=== PATIENT | male | born 1950 | race Caucasian/White ===

== ENCOUNTER → 2021-03-29 11:06 | Outpatient (CLI) | payer MEDICARE, OTHER, SELFPAY ==
[2021-03-29 12:36] LABS: COVID19 -Nasal RAPID Negative (Negative)
== END ==
PROVIDERS: Visit Provider Physician Assistant
DX: Z01.812 Encounter for preprocedural laboratory examination (principal); Z20.822 Contact with and (suspected) exposure to COVID-19
CPT/HCPCS: 87635; C9803

== ENCOUNTER 2021-04-01 10:26 | Observation (INO) | payer MEDICARE, OTHER, SELFPAY ==
[2021-03-24 12:43] VITALS: BMI 33.2
[2021-03-31] VITALS (14 sets, daily range): BP systolic 103–132; BP diastolic 48–70; PULSE 55–101; RESP 14–21; TEMP 35.8–36.9; O2SAT 92–100; BMI 33.2
--- NOTE | 2021-03-31 06:30 | DI.RAD.S_ITS ---
PROCEDURE: XR KNEE RT 1TO2V INDICATIONS: post op total knee TECHNIQUE: 2 view(s) of the knee acquired. COMPARISON: [facility] NobleLucien Ingram, CR, XR KNEE 4+ VIEWS RIGHT, 01/22/2021, 15:57. FINDINGS: Bones: Patient is status post knee joint arthroplasty. Hardware components are in expected positions. Visualized bony structures are intact. Soft tissues: Overlying postoperative changes are noted. IMPRESSION: Status post interval right total knee arthroplasty without evidence for acute hardware complication. Dictated by: Cyrus Pelaez M.D. on 03/31/2021 at 15:06 Approved by: Cyrus Pelaez M.D. on 03/31/2021 at 15:07
[2021-03-31] MEDS: CELECOXIB 200 MG CAPSULE PO (09:04)
[2021-03-31] MEDS: PREGABALIN 75 MG CAPSULE PO (09:04)
[2021-03-31] MEDS: ACETAMINOPHEN 325 MG TABLET 975 MG PO (09:04)
[2021-03-31] MEDS: LACTATED RINGERS 1,000 ML 42 ML IV (09:05)
--- NOTE | 2021-03-31 09:23 | PM.PREOP ---
Pre-operative Note COVID-19 COVID-19 status: Negative Result date/Date tested (Pos, Neg/Pending): 03/29/21 Interval Note History & Physical reviewed/Exam performed by Physician: Yes Changes to H&P: No
--- NOTE | 2021-03-31 09:30 | P.OP_ITS ---
Operative Date/Time/Diagnoses Date of procedure: 03/31/21 Time of procedure: 11:40 Pre-op diagnosis: Right knee osteoarthritis Post-op diagnosis: same Procedure & Clinicians Procedure: Right total knee replacement Same procedure as scheduled: Yes Indications: The patient has had progressively worsening right knee pain with radiographic changes consistent with arthritis. Non-operative management has failed and the patient has requested total knee replacement. The risks, benefits and alternatives to surgery were discussed with the patient prior to proceeding. Risks discussed included, but were not limited to, failure to relieve pain, stiffness, infection, nerve damage, deep venous thrombosis, pulmonary embolism, stroke, coma, heart attack, permanent paralysis and , as well as the potential need for eventual revision of the prosthetic. Surgeon: Rohit Wright Welt Edge Rounder: Gage Lebron Click Yes if Unassisted: No Anesthesia Type: General, Spinal and Local Operative Notes Findings: Severe medial and patellofemoral osteoarthritis with relative preservation of the lateral compartment. Closure Type: primary Specimen(s): none sent Prosthetic devices, grafts, tissues, transplants, or devices: Implants used in this procedure were manufactured by the [employer] and included the BCS II Journey total knee replacement with a size 8 right Oxinium femoral component, a size 6 right non porous tibial base plate, a none a 9 mm cross-linked polyethylene tibial insert and a 35 mm oval Nicole II patella. Applied: implant(s) Estimated Blood Loss (mL): 25 Blood products transfused: none Tourniquet time (min): 57 Procedure in detail: The patient was seen in the pre-operative area, where the patient identified the right knee as the operative site and this was marked with my initials. The patient received pre-operative antibiotics, and was taken to the operating room and placed on the operative table in the supine position. After satisfactory anesthesia, a java consultant out was performed. The right leg was encircled with a tourniquet about the proximal thigh, and the leg was prepared from the toes to the tourniquet with ChloroPrep in the usual fashion and draped through sterile drapes. The leg was elevated and exsanguinated with Eschmark bandage and the tourniquet inflated to 250 mmHg pressure. The knee was approached through an approximately 18 cm incision centered over the patella and carried into the knee through a medial parapatellar arthrotomy. There was a large meniscal cyst attached to the anterior horn of the medial meniscus which was excised during the approach. The capsule was preserved during this excision to allow closure. The anterior osteophytes and soft tissues were removed. The rotational landmarks of Roosevelt's line and the transepicondylar axis were marked on the femur with electrocautery, and intramedullary guide holes for the femur and tibia were created. The distal femoral cut was made in 6 degrees of valgus using the intramedullary guide at the primary cut setting. The proximal tibial cut was then made using the intramedullary guide, taking 9 mm of bone off the less involved side. The extension gap was checked and the rotation of the femoral component confirmed with the gap balancing system. The anterior, posterior and chamfer cuts were then made. The posterior osteophytes and soft tissues were then removed. The posterior capsule was injected with part of a mixture of 60 ml 0.25% Marcaine mixed with 20 ml Exparel and 4 mg of morphine for post-operative pain control. The remainder of this mixture was injected into the capsule and subcutaneous tissues during cement curing. The tibia was prepared with the rotation set by an extra medullary guide. Trial tibial and femoral components were then placed and the intercondylar notch cut through the femoral trial. Range of motion was 0-135 degrees, with good stability throughout the range. The patella was then cut to accommodate the patellar prosthetic. There was no need for a lateral release. The trials were then removed, and the femoral hole plugged with a bone plug. The bone was prepared with pulsatile lavage, and dried with a sponge. Cement was applied and the final prosthetics placed. Excess cement was removed during and after cement curing. After confirming there was no extruded cement posteriorly, the final tibial insert was placed. The knee was copiously irrigated and the tourniquet deflated. Hemostasis was obtained. The capsule was closed with interrupted # 2 polyester suture. The subcutaneous layer was closed with 3-0 Vicryl, and the skin with a running 3-0 V-Lock suture and Dermabond. An Aquacel Ag dressing was applied and the patient was taken to recovery having tolerated the procedure well. Post-operative Condition: stable Disposition: PACU Plan for aftercare: The patient will be maintained on a standard total knee replacement protocol with weight bearing as tolerated. The patient will receive aspirin and sequential compression devices for DVT prophylaxis. The patient will be discharged home when safe for the home environment.
[2021-03-31] MEDS: CEFAZOLIN 1 GM VIAL 2 GM IV (10:06)
[2021-03-31] MEDS: TRANEXAMIC ACID 1,000 MG VIAL 1000 MG INJ ×2 (10:20→11:08)
[2021-03-31] MEDS: BUPIVACAINE LIPOSOME 266 MG/20 ML VIAL INJ (10:27)
[2021-03-31] MEDS: BUPIVACAINE 0.25% W/ EPI 30 ML VIAL 60 ML INJ (10:27)
[2021-03-31] MEDS: MORPHINE 4 MG/ML INJ INJ (10:27)
--- NOTE | 2021-03-31 10:30 | SUR.OPER ---
Supine on padded OR bed. Pillow under head, arms secured on padded armboards <90 degree abduction. Safety belt across torso. Non-operative leg secured with tape over blanket over lower leg. Operative leg secured in DeMayo/Abraham/Nathe positioner. Foam padded brace at thigh of operative leg.
[2021-03-31] MEDS: LACTATED RINGERS 1,000 ML 100 ML IV ×2 (12:47→22:07)
--- NOTE | 2021-03-31 14:13 | SUR.PHASEI ---
Stable PACU stay, report called to sandi Javed transferred up to room and left in stable condition, bed down, locked and SCD's on.
[2021-03-31] MEDS: IBUPROFEN 400 MG TABLET PO ×3 (14:55→20:37)
[2021-03-31] MEDS: ACETAMINOPHEN 325 MG TABLET 650 MG PO ×2 (14:55→20:37)
--- NOTE | 2021-03-31 15:13 | PC.NURSE ---
RA = 98%, Aquacell/Eleuterio wrap c/d/i, PPP to RLE, IV fluids infusing, SCDs active, bed alarm active, pt oriented to room and call light
--- NOTE | 2021-03-31 16:10 | PT.IIE ---
Current Diagnoses Unilateral primary osteoarthritis, right knee (03/31/21) Surgery Performed Operation Date: 03/31/21 10:15 Actual Procedures p Total Knee Arthroplasty(Right) - Rohit Wright MD Medical History (Last Updated 03/24/21 @ 13:14 by Kym Frank RN) BPH with urinary obstruction CAD (coronary artery disease) Chronic cough CKD (chronic kidney disease), stage II Current every day smoker Depression Diabetes mellitus, type II Emphysema lung HLD (hyperlipidemia) HTN (hypertension) ILD (interstitial lung disease) Insomnia Microalbuminuria NSTEMI (non-ST elevated myocardial infarction) (2013) MAGAN (obstructive sleep apnea) (2007) Osteoarthritis RBBB (right bundle branch block) Physical Therapy Inpatient Evaluation/Re-Eval M1 PT/OT-IP Prior Functional Status Start: 03/31/21 17:29 Freq: NEEDED Status: Active Protocol: Document 03/31/21 16:10 DLM (Rec: 03/31/21 17:45 DLM [id number]) Medical Review Prior Functional Status Medical History Reviewed Yes Diet/Fluid Consistency Regular Communication WNL Mobility and Gait Independent without a device, community distances Activities of Daily Living and IADL's Independent Social History Household Members spouse Living Arrangements House Number of Floors (Floors) Two Floors Number of Stairs To Enter/Railing? he stays on main level of house, 2 steps to enter with rail Home Environment High Toilet,Walk in Shower Home Equipment Front Wheel Walker,Straight Cane,Shower Seat with Backrest ,Grab Bars Near Toilet,Grab Bars In Shower Additional Social History Comment His retired, CPAP at home with sleeping M2 PT-IP Current Condition Start: 03/31/21 17:29 Freq: NEEDED Status: Active Protocol: Document 03/31/21 16:10 DLM (Rec: 03/31/21 17:45 DLM [id number]) Physical Therapy Current Condition Current Condition Evaluation Date 03/31/21 Treatment Diagnosis Right TKA, impaired gait and mobility Onset Date 03/31/21 Weight Bearing Status Weight Bearing Status Weight Bear as Tolerated M3 PT-IP Subjective Start: 03/31/21 17:29 Freq: NEEDED Status: Active Protocol: Document 03/31/21 16:10 DLM (Rec: 03/31/21 17:45 DLM [id number]) Subjective Physical Therapy Visit Type Type Initial Evaluation Visit Start Time 15:45 Visit Stop Time 16:10 Total Visit Minutes [address] Visits 0 Physical Therapy Visit Comments Patient Comments He is nauseated today, he has out-pt PT set up after discharge Patient Goals discharge home with his to help him Therapy Pain Assessment Pain When Pain Assessed During Mobility Pain Present Pain Present Pain Reported Location Right Knee Intensity 3 Scale Used Numeric (0 - 10) Description Aching Pain Management Techniques Apply Cold,Elevation M4 PT-IP Mobility and Gait Start: 03/31/21 17:29 Freq: NEEDED Status: Active Protocol: Document 03/31/21 16:10 DLM (Rec: 03/31/21 17:45 DL [id number]) PT-Bed Mobility Assessment Supine to Sit Supine to Sit Standby Assistance Sit to Supine Sit to Supine Standby Assistance Scooting Scooting to Edge of Bed Independent Scooting Up and Down in Bed Independent PT-Transfer Assessment Comments Mobility Comments Vital signs: Sitting BP 140/84 , Supine 134/74 and HR 71, O2 sat 93% on room air. He sat up on edge of bed but has c/o nausea and light- headed. He was not able to progress to standing nor transfers this visit. He returned to bed to rest. Gait Assessment Comments Gait Comments unable to progress to gait this visit PT-Balance Assessment Sitting Balance and Reactions Static Sitting Balance Ability Normal Dynamic Sitting Balance Ability Normal M5 PT-IP Objective Assessments Start: 03/31/21 17:29 Freq: NEEDED Status: Active Protocol: Document 03/31/21 16:10 DLM (Rec: 03/31/21 17:45 DL [id number]) Orientation Orientation/Cognition Level of Alertness Alert Orientation Name,Age,Birthday,Month,Date, Year,Day of Week,Place, Situation Language Function Ability No Deficits Noted Safety Awareness Understands Safety Issues Memory Description No Deficits Noted Gross Range of Motion Upper Extremity ROM Assessment Within Functional Limits Lower Extremity ROM Assessment Right Impaired Impairments knee AROM 10-90 degrees Strength Upper Extremity Strength Assessment Within Functional Limits Lower Extremity Strength Assessment Right Impaired Hip able to lift off bed with extensor lag Knee knee ext 2+/5 Ankle DF 4+/5 Comments Strength Comments post-op pain and weakness present that affects functional strength Coordination Assessment Gross Coordination Gross Coordination WNL Sensation Assessment Sensation Gross Sensation WNL Muscle Tone Muscle Tone WNL Yes Other Assessments Other Other Assessments brandon wrap in place on right knee M6 PT-IP Treatment Start: 03/31/21 17:29 Freq: NEEDED Status: Active Protocol: Document 03/31/21 16:10 DLM (Rec: 03/31/21 17:45 DLM [id number]) Physical Therapy Treatment Exercises Exercises Ankle Pumps,Quad Sets,Seated Knee Flexion/Extension Education Education Provided Weight Bearing Status,Post-Op Packet,Safety Other Treatments Other Treatment Performed no family present this visit M7 PT-IP Assessment and Plan Start: 03/31/21 17:29 Freq: NEEDED Status: Active Protocol: Document 03/31/21 16:10 DLM (Rec: 03/31/21 17:45 DLM [id number]) PT Summary Assessment and Plan Potential Rehabilitation Potential Good Status of Condition at Evaluation Evolving Summary Impairments Pain,ROM,Strength,Balance,Bed Mobility,Transfers,Gait, Activity Tolerance Assessment Summary Chris is alert and resting in bed. He agreed to participate in physical therapy today. He is having nausea in bed and in sitting. He developed light- headedness with no significant drop in his BP. He declined to attempt standing due to his nausea. He returned to bed to rest. Will continue to work towards his goal of discharge home with his as he improves medically. Goals Bed Mobility Goal Independent Transfer Goal Independent,Front Wheeled Walker Gait Goal Standby Assistance,Front Wheel Walker Gait Distance 150 feet Other Goals up and down 2 steps with rail and cane with CG assist Days to Meet Goals 2 Frequency of Treatment Frequency Of Treatment Twice a Day Treatment Plan Physical Therapy Treatment Plan Bed Mobility Training,Transfer Training,Gait Training, Therapeutic Exercise,Balance Retraining,Post Op Education, Discharge Planning,Hot or Cold Pack Recommendations To Nursing Amount of Assist Needed 1 Person Assist Discharge Recommendations PT Discharge Recommendations Home with Assistance, Outpatient PT Transportation Needs at Discharge Private Vehicle
[2021-03-31] MEDS: AMLODIPINE 5 MG TABLET 2.5 MG PO (16:49)
[2021-03-31] MEDS: VALSARTAN 80 MG TABLET PO (16:49)
[2021-03-31] MEDS: TAMSULOSIN 0.4 MG CAPSULE PO (20:38)
[2021-03-31] MEDS: ASPIRIN EC 81 MG TABLET PO (20:38)
[2021-03-31] MEDS: ATORVASTATIN 20 MG TABLET 80 MG PO (20:38)
[2021-03-31] MEDS: DOCUSATE 100 MG CAPSULE PO (20:38)
[2021-03-31] MEDS: METFORMIN XR 500 MG TABLET 750 MG PO (20:38)
--- NOTE | 2021-03-31 22:10 | PC.NURSE ---
Per patient, last void was 0815 this morning prior to surgery. Patient was unable to urinate at 1615 and bladder scan showed over 400mL. Straight cath indicated and got 460mL out. Patient has not urinated since and has no urge to urinate. Bladder scan showed 560mL. Discussed with on-call Dr. Sommer and asked if straight cath or fisher is needed and he recommends another straight cath.
[2021-04-01] MEDS: IBUPROFEN 400 MG TABLET PO ×4 (00:21→13:05)
[2021-04-01 03:19] VITALS: BP 116/63; PULSE 72; RESP 18; TEMP 36.2; O2SAT 97
[2021-04-01 06:40] LABS: Hematocrit 36.5 % (41-53); Hemoglobin 11.8 g/dL (13.5-17.5)
[2021-04-01 07:42] VITALS: BP 104/57; PULSE 81; RESP 16; TEMP 36.1; O2SAT 95
--- NOTE | 2021-04-01 07:49 | PM.PNPO.1 ---
Subjective Subjective Date Patient Seen: 04/01/21 Time Patient Seen: 07:50 Interval history: Patient's pain is [id number]. Denies fever or chills. No nausea or vomiting. Patient has had difficulty urinating on his own. Patient has required straight catheterization x1. Patient has long history of being on Flomax. Exam Vital Signs (past 8 hours): - 04/01/21 03:19 Temperature 97.2 F L Pulse Rate 72 Respiratory Rate 18 Blood Pressure 116/63 Pulse Oximetry 97 Oxygen Delivery Method CPAP Oxygen Flow Rate 0 Narrative Exam Narrative: 70-year-old male resting comfortably in bed in no apparent distress. Dressing is Clean, dry, intact.. Motor functions intact distally. Sensation intact distally. Objective Labs Result Diagrams: 04/01/21 06:34 Labs: Laboratory Results - last 24 hr 04/01/21 06:34 Hgb 11.8 L Hct 36.5 L PFSH Medical History (Updated 03/24/21 @ 13:14 by Kym Frank RN) BPH with urinary obstruction CAD (coronary artery disease) Chronic cough CKD (chronic kidney disease), stage II Current every day smoker Depression Diabetes mellitus, type II Emphysema lung HLD (hyperlipidemia) HTN (hypertension) ILD (interstitial lung disease) Insomnia Microalbuminuria NSTEMI (non-ST elevated myocardial infarction) (2013) MAGAN (obstructive sleep apnea) (2007) Osteoarthritis RBBB (right bundle branch block) Surgical History (Updated 03/24/21 @ 13:11 by Kym Frank RN) History of bilateral carpal tunnel release History of vasectomy Hx of heart artery stent (2011) Hx of knee surgery Hx of knee surgery Social History household members: spouse Smoking Status: Current every day smoker alcohol intake: never Assessment & Plan Post-op Postoperative Procedures: Procedures Operation Date: 03/31/21 10:15 Actual Procedure Side Surgeon p Total Knee Arthroplasty Right Rohit Wright MD Postoperative day: 1 Postoperative status: doing well Postoperative status narrative: Urinary retention. Straight cath per protocol Postoperative plan: routine post-op care Postoperative plan narrative: Mobilize with physical therapy. Possible discharge home today if able to urinate on his own. Time Spent With Patient Time with patient: less than 15 minutes Quality VTE Deep Vein Thrombosis/Pulmonary Embolism Present on Admission: No
[2021-04-01 07:54] VITALS: PULSE 72; RESP 16; O2SAT 97
[2021-04-01] MEDS: DOCUSATE 100 MG CAPSULE PO (09:06)
[2021-04-01] MEDS: METOPROLOL IR 25 MG TABLET PO (09:06)
[2021-04-01] MEDS: TAMSULOSIN 0.4 MG CAPSULE PO (09:06)
[2021-04-01] MEDS: ASPIRIN EC 81 MG TABLET PO (09:06)
[2021-04-01] MEDS: METFORMIN XR 500 MG TABLET 750 MG PO (09:07)
[2021-04-01] MEDS: ACETAMINOPHEN 325 MG TABLET 650 MG PO (09:07)
--- NOTE | 2021-04-01 10:05 | PT.IPTN ---
Current Diagnoses Unilateral primary osteoarthritis, right knee (04/01/21) Surgery Performed Operation Date: 03/31/21 10:15 Actual Procedures p Total Knee Arthroplasty(Right) - Rohit Wright MD Physical Therapy Treatment Note M2 PT-IP Current Condition Start: 03/31/21 17:29 Freq: NEEDED Status: Active Protocol: Document 03/31/21 16:10 DLM (Rec: 03/31/21 17:45 DLM [id number]) Physical Therapy Current Condition Current Condition Evaluation Date 03/31/21 Treatment Diagnosis Right TKA, impaired gait and mobility Onset Date 03/31/21 Weight Bearing Status Weight Bearing Status Weight Bear as Tolerated M3 PT-IP Subjective Start: 03/31/21 17:29 Freq: NEEDED Status: Active Protocol: Document 04/01/21 10:05 AB (Rec: 04/01/21 12:08 AB [id number]) Subjective Physical Therapy Visit Type Type Treatment Note Visit Start Time 10:05 Visit Stop Time 10:46 Total Visit Minutes 41 Number of MANAGER COSMETIC Visits 0 Physical Therapy Visit Comments Patient Comments pt agreeable to do PT Therapy Pain Assessment Pain When Pain Assessed At Rest Pain Present Pain Present Pain Reported Location Right Knee Intensity 4 Scale Used Numeric (0 - 10) Pain Management Techniques Apply Cold,Modification of Treatment,Re-positioning, Timing of Activity with Medications M4 PT-IP Mobility and Gait Start: 03/31/21 17:29 Freq: NEEDED Status: Active Protocol: Document 04/01/21 10:05 AB (Rec: 04/01/21 12:08 AB [id number]) PT-Bed Mobility Assessment Sit to Supine Sit to Supine Standby Assistance PT-Transfer Assessment Sit to and From Stand Sit to and from Stand Standby Assistance,Contact Guard Assistance,1 Person Assistance Equipment Transfer Assistive Device Gait Belt,Front Wheeled Walker Orthotic/Prosthetic Devices or Brace: No Transfers Transfer Destination Toilet Transfer Technique ambulated using FWW Transfer Ability Level of Assist Standby Assistance,Contact Guard Assistance,1 Person Assistance,Use of Upper Extremities Comments Mobility Comments pt sitting on chair and agreed to do PT. completed sit to stand from the chair SBA to CGA and ambulated in room using FWW SBA to CGA ~ 20 ft. agreed to walk in the hallway but requested to use the toilet first. ambulated to the toilet using FWW SBA to CGA. pt was able to maintain standing using FWW for support SBA. ambulated to the sink and was able to maintain standing SBA while completing handwashing. pt ambulated towards the stairs. PT demonstrated and educated pt for stair climbing. pt stated that he has 2 rails to enter the house. completed up /down steps using B rails SBA to CGA. pt ambulated back to his room SBA to CGA using FWW. pt requested to go back to the bed. completed sit to supine SBA. positioned pt in bed. call light and table placed within reach. Gait Assessment Gait Gait Assistance Required: Standby Assistance,Contact Guard Assist Distance (Feet) 150 Able to Maintain Weight Bearing Status Yes During Gait Assistive Devices Assistive Device Gait Belt,Front Wheeled Walker Orthotic/Prosthetic Devices or Brace: No Gait Deviations General Gait Pattern Decreased Stride Length, Decreased Feet Clearance Factors Limiting Gait Function Factors Limiting Gait Function Decreased Activity Tolerance, Decreased Strength,Limited Range of Motion,Pain,Poor Balance Comments Gait Comments pls refer to mobility section for details Stair Climbing Assessment Evaluation Level of Assist On Stairs Standby Assistance,Contact Guard Assistance Devices Stair Climbing Assistive Devices Left Railing,Right Railing Technique/Endurance Stair Climbing Direction Ascend and Descend Stair Climbing Technique Step to Step Number of Steps Climbed 3 Stair Climbing Set # Repetitions (reps) 1 M5 PT-IP Objective Assessments Start: 03/31/21 17:29 Freq: NEEDED Status: Active Protocol: Document 03/31/21 16:10 DLM (Rec: 03/31/21 17:45 DLM [id number]) Orientation Orientation/Cognition Level of Alertness Alert Orientation Name,Age,Birthday,Month,Date, Year,Day of Week,Place, Situation Language Function Ability No Deficits Noted Safety Awareness Understands Safety Issues Memory Description No Deficits Noted Gross Range of Motion Upper Extremity ROM Assessment Within Functional Limits Lower Extremity ROM Assessment Right Impaired Impairments knee AROM 10-90 degrees Strength Upper Extremity Strength Assessment Within Functional Limits Lower Extremity Strength Assessment Right Impaired Hip able to lift off bed with extensor lag Knee knee ext 2+/5 Ankle DF 4+/5 Comments Strength Comments post-op pain and weakness present that affects functional strength Coordination Assessment Gross Coordination Gross Coordination WNL Sensation Assessment Sensation Gross Sensation WNL Muscle Tone Muscle Tone WNL Yes Other Assessments Other Other Assessments brandon wrap in place on right knee M6 PT-IP Treatment Start: 03/31/21 17:29 Freq: NEEDED Status: Active Protocol: Document 04/01/21 10:05 AB (Rec: 04/01/21 12:08 AB [id number]) Physical Therapy Treatment Exercises Exercises Heel Slides Education Education Provided Safety Other Treatments Other Treatment Performed reviewed HEP M7 PT-IP Assessment and Plan Start: 03/31/21 17:29 Freq: NEEDED Status: Active Protocol: Document 04/01/21 10:05 AB (Rec: 04/01/21 12:08 AB [id number]) PT Summary Assessment and Plan Potential Rehabilitation Potential Good Summary Impairments Pain,ROM,Strength,Balance, Coordination,Sensation,Tone, Bed Mobility,Transfers,Gait, Activity Tolerance Progress Towards Goals Progressing Toward Goals Assessment Summary pt requiring SBA to occasional CGA with mobility and plans to go home with spouse to assist him. declined caregiver training. pt is steady with mobility and does not have any concerns. pt is set up for outpt PT. pt may go home when medically stable. Goals Bed Mobility Goal Independent Transfer Goal Independent,Front Wheeled Walker Gait Goal Standby Assistance,Front Wheel Walker Gait Distance 150 feet Other Goals up and down 2 steps with rail and cane with CG assist Days to Meet Goals 2 Frequency of Treatment Frequency Of Treatment Twice a Day Treatment Plan Physical Therapy Treatment Plan Bed Mobility Training,Transfer Training,Gait Training, Therapeutic Exercise,Balance Retraining,Post Op Education, Discharge Planning,Hot or Cold Pack Recommendations To Nursing Amount of Assist Needed 1 Person Assist Discharge Recommendations PT Discharge Recommendations Home with Assistance, Outpatient PT Transportation Needs at Discharge Private Vehicle
[2021-04-01] MEDS: OXYCODONE IR 5 MG TABLET PO ×2 (10:59→13:06)
--- NOTE | 2021-04-01 11:36 | P.DS_ITS ---
History of Present Illness History of Present Illness Date Patient Seen: 04/01/21 Time Patient Seen: 11:36 Chief complaint: OPB Narrative: Pain [id number]. Denies fever or chills. Has been able to urinate now on his own twice. Discharge Providers Provider Date of admission: 04/01/21 10:26 Discharge Date: 04/01/21 Consults: 03/31/21 12:22 Consult to Discharge Planning Routine Comment: Consult to Physical Therapy Evaluate & Treat Comment: Physician Instructions: postop TKA protocol Discharge provider: Gage Lebron PA-C Summary Hospital Course Discharge Diagnosis: Right knee osteoarthritis Urinary retention Hospital Course: Procedure & Clinicians Procedure: Right total knee replacement Same procedure as scheduled: Yes Indications: The patient has had progressively worsening right knee pain with radiographic changes consistent with arthritis. Non-operative management has failed and the patient has requested total knee replacement. The risks, benefits and alternatives to surgery were discussed with the patient prior to proceeding. Risks discussed included, but were not limited to, failure to relieve pain, stiffness, infection, nerve damage, deep venous thrombosis, pulmonary embolism, stroke, coma, heart attack, permanent paralysis and , as well as the potential need for eventual revision of the prosthetic. Surgeon: Rohit Wright Ball Winder: Gage Lebron Click Yes if Unassisted: No Anesthesia Type: General, Spinal and Local Operative Notes Findings: Severe medial and patellofemoral osteoarthritis with relative preservation of the lateral compartment. Closure Type: primary Specimen(s): none sent Prosthetic devices, grafts, tissues, transplants, or devices: Implants used in this procedure were manufactured by the [employer] and included the BCS II Journey total knee replacement with a size 8 right Oxinium femoral component, a size 6 right non porous tibial base plate, a none a 9 mm cross-linked polyethylene tibial insert and a 35 mm oval Nicole II patella. Applied: implant(s) Estimated Blood Loss (mL): 25 Blood products transfused: none Tourniquet time (min): 57 Patient admitted to the hospital for right total knee arthroplasty. Patient consented to the same. Patient taken operating room yesterday underwent right total knee arthroplasty. Patient back in his room recovering well as in stable condition. Patient did have some difficulty urinating requiring in and out catheterization. Patient able the urinate this morning twice now on his own. Patient will be discharged in stable condition. Status at Discharge Cognitive/behavioral status at discharge: at baseline, oriented Functional status at discharge: uses cane/walker Overall status at discharge: patient is progressing back to baseline Time Spent with Patient Time spent: Less than 30 minutes Exam Vital Signs (past 8 hours): - 04/01/21 07:42 04/01/21 07:54 Temperature 97.0 F L Pulse Rate 81 72 Respiratory Rate 16 16 Blood Pressure 104/57 L Pulse Oximetry 95 97 Oxygen Delivery Method Room Air Oxygen Flow Rate 0 Narrative Exam Narrative: See progress note Objective Labs Result Diagrams: 04/01/21 06:34 Labs: Laboratory Results - last 24 hr 04/01/21 06:34 Hgb 11.8 L Hct 36.5 L PFSH Medical History BPH with urinary obstruction CAD (coronary artery disease) Chronic cough CKD (chronic kidney disease), stage II Current every day smoker Depression Diabetes mellitus, type II Emphysema lung HLD (hyperlipidemia) HTN (hypertension) ILD (interstitial lung disease) Insomnia Microalbuminuria NSTEMI (non-ST elevated myocardial infarction) (2013) MAGAN (obstructive sleep apnea) (2007) Osteoarthritis RBBB (right bundle branch block) Surgical History History of bilateral carpal tunnel release History of vasectomy Hx of heart artery stent (2011) Hx of knee surgery Hx of knee surgery Social History household members: spouse Smoking Status: Current every day smoker alcohol intake: never Discharge Assessment & Plan Assessment and Plan Assessment: Progressing as expected status post right total knee arthroplasty Plan of Treatment: Discharge home today in stable condition. Discharge Plan Discharge Plan Patient Disposition: Home Discharge orders & Medications Prescriptions: New acetaminophen 325 mg Tablet 650 mg PO TID Qty: 60 RF: 0 aspirin 81 mg Tablet,Delayed Release (Dr/Ec) 81 mg PO BID Qty: 60 RF: 0 polyethylene glycol 3350 17 gram Powder In Packet 17 g PO DAILY PRN (Reason: Constipation) Qty: 14 RF: 0 ibuprofen 400 mg Tablet 400 mg PO Q4HR Qty: 60 RF: 0 oxycodone 5 mg Tablet 5 mg PO Q3HR PRN (Reason: Pain, Moderate (4-6)) Qty: 45 RF: 0 hydroxyzine pamoate 25 mg Capsule 25 mg PO Q6HR PRN (Reason: Nausea) Qty: 20 RF: 0 Continued atorvastatin 80 mg Tablet 80 mg PO BEDTIME RF: 0 amlodipine 2.5 mg Tablet 2.5 mg PO QPM RF: 0 tamsulosin 0.4 mg Capsule 0.4 mg PO BID RF: 0 valsartan 80 mg Capsule 80 mg PO QPM RF: 0 nitroglycerin 0.4 mg Tablet, Sublingual 0.4 mg SUBLINGUAL Q5-15M PRN (Reason: Chest Pain) RF: 0 metformin 750 mg Tablet Extended Release 24 Hr 750 mg PO BID RF: 0 metoprolol tartrate 25 mg Tablet 25 mg PO BID RF: 0 Discontinued aspirin [Aspir-Low] 81 mg Tablet,Delayed Release (Dr/Ec) 81 mg PO DAILY RF: 0 Follow up/Referrals: Rohit Wright MD [Physician] - (2 weeks) Diet/Activity/Treatments Diet: Carb-consistent/Diabetic Activity: Weight-bearing as tolerated Cold/Heat Therapy: Ice to knee as needed Skin/Wound/Dressing Care Report to your healthcare provider any signs of infection, such as:: chills, fever, increased pain, unusual drainage and unusual redness Dressing: Keep dressing clean and dry Visit Report/Discharge Packet Instructions: DI for Knee Replacement, DI for Prescription Opioid Use Stand Alone Forms: Surgery Discharge Discharge Data Attending Provider: Rohit Wright Quality VTE Deep Vein Thrombosis/Pulmonary Embolism Present on Admission: No
--- NOTE | 2021-04-01 13:26 | PC.NURSE ---
Pt is dressed and ready for discharge home with Spouse. IV has been removed. Went over d/c instructions with Pt and Spouse-discussed d/c meds, time of last dose, reviewed stroke education, s/s of infection and when to call MD, showering, and follow up. Reminded Pt not to drive while on narcotics and to drink plenty of fluids to prevent constipation or dehydration. Reminded Pt not to exceed 3000mg of Acetaminophen in 24 hours due to risk of liver damage. Pt and Spouse denied further questions. Pt given pain meds prior to discharge as well as ice packs for his knee. Pt has an hour and a half drive to get home. Pt out via w/c by UNDERCAR SPECIALIST to pov with Spouse and all belongings.
--- NOTE | 2021-04-01 16:41 | CM.DANOTE ---
DCP Assessment: Patient is a 70 year-old male admitted for a RTKA. PCP is Dacia Zavaleta. Primary payer is Medicare and [facility]. Physical therapy recommends home with assistance and outpatient physical therapy. Per MALKA Partida note patient may be D/C today if he is able to urinate on his own. PIERCING MACHINE OPERATOR Student met with patient at bedside she was alert and oriented. Provided education on role of social work in discharge planning. Patient lives with and is independent with ADL?s at baseline including driving. Patient reported [employer] will provide transportation at time of D/C. Patient has outpatient physical therapy schedule at a facility in [place] one week from now. PLAN: Anticipate D/C home with assistance and outpatient physical therapy scheduled. CM Team to continue to follow. PEDRITO Zavala MSW Student Discharge Planning/Care Management CM Discharge Assessment Start: 04/01/21 10:04 Freq: Status: Discharge Protocol: Document 04/01/21 10:04 AL (Rec: 04/01/21 10:07 AL [id number]) Discharge Planning Assessment Assigned Shell Sieve Operator PEDRITO Loja DPOA/Assigned Designee Name Senait Tyrone Advance Directives? No History Provided By Patient,Medical Record Has Patient been admitted in last 30 No days? Prior Living Arrangements House Household Members spouse Type of transporation used prior to Drives own vehicle admit Independent with ADL's Yes Is patient alert and oriented? Yes Caregiver for Another No Patient/Family Preference OP PT Therapy Comment Patient has outpatient PT scheduled for x1 week from now . Barriers to Discharge No Discharge Plan Home Transportation Arrangement Ricardo Sapp will provide transportation at time of D/C Referrals Initiated None needed Whiteboard Updated in Patient Room with Yes name and ext. # of Shell Sieve Operator Review Status In Process Pre-Anesthesia Assessment Start: 03/24/21 12:43 Freq: Status: Discharge Protocol: Document 03/24/21 12:43 CAB (Rec: 03/24/21 13:47 CAB [id number]) Pre-Anesthesia Assessment Patient Information Reviewed Via Phone Assessment Assessment Completed With Patient Comment Labs/EKG done per pt, not here , COVID screen 03/29/21 Primary Care Provider [facility] Clearance Received Yes Seen Specialist in Last 12 Months Yes Specialist Seen Soaking Room Operator,Orthopedist, Urologist Comment PCP clearance scanned Primary Language [place] Ssds Mk 2 Advanced Operator Required No Height 179.07 cm Weight 106.594 kg Body Mass Index (BMI) 33.2 Hearing Ability Normal Visual Assist Glasses Dentition Type Teeth, Natural Present,Teeth, Missing,Dental Implants Barriers to Learning None Other Aids Yes: CPAP Hx Anesthesia Reactions No Hx Family Anesthesia Reaction No Hx Malignant Hyperthermia No Hx Blood Transfusions No Anesthesia Review Requested Yes: Surgeon requested re: Cardiac history alcohol intake never Smoking Status Current every day smoker Smoking packs per day 5 how long ago did patient quit smoking Trying to quit Substance Use Type does not use Pain Present Pain Reported Musculoskeletal Symptoms Abnormal Gait,Difficulty Walking,Joint Pain History of Falling (Recent or History of No ) Patient is completely paralyzed or No completely immobile Mental Status Oriented to own ability Is patient on oxygen? No Does patient have ALEXANDRE/SOB Yes: ALEXANDRE, pt feels r/t to leg fatigue Hx Sleep Apnea Yes CPAP/BIPAP use prescribed and used routinely Currently Taking a Beta Paty Yes: Metoprolol Can You Climb a Flight of Stairs Without No SOB Hx Chest Pain Yes: None after stent place Hx SOB Yes: ALEXANDRE, pt feels r/t to leg fatigue Hx Syncope or Dizziness No Has a Soaking Room Operator Yes: Dr. Guajardo-visit Hx Pacemaker/ICD No Pacemaker Rep Required? No Comment Cardiac records scanned Diet Type At Home Regular dysphagia No Bladder Pattern Frequency Urinary Catheter Present No Hx Urinary Self Catheterization No Diabetes Yes HgbA1C 6.7 Hx Drug Resistant Organism No Presence of External or Internal Medical Yes: Cardiac stent, CPAP Devices Have you had any close contact with No someone diagnosed with COVID-19? Marital Status Lives With spouse Prior Living Arrangements House Number of Floors (Floors) Two Floors Support System Spouse Does the Patient Have Assistance After Yes Surgery Patient Discharge Plan Description Return Home Comment Pt advised possible same day length of stay per surgeon Feels Safe in Current Environment Yes Been Physically Hurt or Threatened By a No Person in Current Environment Do you have thoughts of harming yourself None or others? Are you currently considering suicide? No Do you have a plan to hurt yourself or No Plan others? Do You Have Any Spiritual Beliefs That No May Affect Your HC Choices? Do You Have Any Cultural Practices That No May Affect Your HC Choices? Who Can We Speak to About Patient's Care Family, friends Identifying Code for Release of Patient Declines to issue Information Health Care Proxy/Next of Kin [employer] () Health Care Proxy Emergency Contact Name Senait () Emergency Contact Advance Directives? No Power of Product Development Technician No PAC Instructions Bring CPAP/BIPAP,Diabetes instructions,Durable medical equipment,Medications to take/ avoid,Nasal antibiotic,No ETOH /petroleum product on skin DOS ,NPO,Post-op transportation, Pre-surgical wash,Sensory aids ,Sturdy shoes/comfortable clothes,Do not bring valuables and remove jewelry
== END 2021-04-01 13:36 | disposition home or self-care (01) ==
LOC: OR 10:42 → AC 10:42
PROVIDERS: Admitting Provider Orthopaedic Surgery; Referring Provider Orthopaedic Surgery; Visit Provider Orthopaedic Surgery
PROC: 0SRC0JZ Replacement of Right Knee Joint with Synthetic Substitute, Open Approach (ICD-10-PCS; CPT 27447; principal; 2021-03-31 10:15)
DX: M17.11 Unilateral primary osteoarthritis, right knee (principal); E11.9 Type 2 diabetes mellitus without complications; I25.10 Atherosclerotic heart disease of native coronary artery without angina pectoris; Z79.84 Long term (current) use of oral hypoglycemic drugs; I12.9 Hypertensive chronic kidney disease with stage 1 through stage 4 chronic kidney disease, or unspecified chronic kidney disease; N18.2 Chronic kidney disease, stage 2 (mild); I25.2 Old myocardial infarction; F17.210 Nicotine dependence, cigarettes, uncomplicated; R33.9 Retention of urine, unspecified
CPT/HCPCS: 27447; 36415; 73560; 82962; 85014; 85018; 97110; 97116; 97162; 97530; C1776; G0378; C9290; J0690; J1815; J2250; J2270; J2274; J2405; J2704; J3010